=== PATIENT | female | born 1960 | race Caucasian/White ===

== ENCOUNTER → 2017-06-14 | Outpatient (CLI) | payer OTHER ==
[~2017-06-14] MED LIST: ACYCLOVIR 800800 MG PO; ALEVE220 MG PO; AMBIEN 5 MG TABL5 M1 PO; BENTYL 20 MG TA20 M1 PO; CENTRUM SILVER1 EAC4 PO; CETIRIZINE HCL5 MG PO; CITRACAL-VIT D1 EAC2 PO; COLACE100 MG PO; CRANBERRY 6,001 EACH PO; GABAPENTIN 100100 MG PO; GAS-X180 MG PO; IMITREX 25 MG T25 MG PO; JARDIANCE25 MG PO; METFORMIN HCL500 MG PO; MISOPROSTOL PO; MUCINEX600 MG PO; PRAVACHOL40 MG PO; PRILOSEC 20 MG20 MG PO; PROAIR HFA8.5 GM INH; PROBIOTIC1 EAC1 PO; SINGULAIR 10 MG10 M1 PO; SYMBICORT160 MCG/4. INH; VENTOLIN HFA 1818 GM INH; VITAMIN B COMP1 EACH PO; VITAMIN D-32000 UNIT PO; VYVANSE60 MG PO; XANAX1 MG PO; ZANAFLEX4 MG PO; ZOLOFT50 MG PO
== END ==
LOC: RAD 08:23
DX: R06.00 Dyspnea, unspecified (principal); R05 Cough

== ENCOUNTER → 2017-10-02 | Outpatient (CLI) | payer OTHER | LOC: CAT 09:52 → RAD 09:52 | DX: Z12.31 Encounter for screening mammogram for malignant neoplasm of breast (principal); J32.9 Chronic sinusitis, unspecified ==

== ENCOUNTER → 2018-11-25 | Outpatient (CLI) | payer OTHER | LOC: RAD 07:59 → BC 07:59 → RAD 16:49 | DX: Z12.31 Encounter for screening mammogram for malignant neoplasm of breast (principal); R05 Cough; K21.9 Gastro-esophageal reflux disease without esophagitis; R49.0 Dysphonia; L12.9 Pemphigoid, unspecified; R09.89 Other specified symptoms and signs involving the circulatory and respiratory systems ==

== ENCOUNTER → 2018-12-09 | Outpatient (CLI) | payer OTHER | LOC: SPEECH 13:14 → RAD 13:14 | DX: R13.12 Dysphagia, oropharyngeal phase (principal); R93.89 Abnormal findings on diagnostic imaging of other specified body structures; Z98.890 Other specified postprocedural states ==

== ENCOUNTER → 2020-03-18 | Outpatient (CLI) | payer OTHER ==
[~2020-03-18] VITALS: Ht 167.6 cm; Wt 78.5 kg
[~2020-03-18] MED LIST changes: +ADDERALL 20 MG20 MG PO; +AMITRIPTYLINE H25 M2 PO; +CLOBETASOL PROP60 G3 TOP; +CYANOCOBAL1000 MCG/1 IM; +DAPSONE100 MG PO; +FLONASE 0.05%50 MCG NASAL; +HYDROXYZINE PAM25 M1 PO; +PROTONIX 20 MG20 MG PO; +SYSTANE 0.3-0.415 ML OPHTHALMIC; +YUVAFEM10 MCG VAG; +ZOLOFT100 MG PO; -ZOLOFT50 MG PO
--- NOTE | ~2020-03-18 | P ---
[facility] [place] [address] PROCEDURE REPORT Name: BELL POLLOCK Room #: REG [facility]#: [id number] Admission: 03/18/20 Attend Phys: Sabino Marion MD Discharge: Date of : 58 Report #: [id number] THIS REPORT FOR: cc: Alisia Sesay MD,Alisia Marion,Sabino Samaniego MD ~ CC: Alisia Marion OUTPATIENT COLONOSCOPY REPORT BRIEF HISTORY: The patient is a 59-year-old woman with family history of colon cancer, father about age 60. PREOPERATIVE DIAGNOSIS: Family history of colon cancer. POSTOPERATIVE DIAGNOSES: 1. Harb-ns-jkpeyffa sigmoid diverticulosis coli. 2. Small internal hemorrhoids. MEDICATIONS: Deep sedation with propofol per anesthesia. SPECIMEN: None. ESTIMATED BLOOD LOSS: None. PROCEDURE: Colonoscopy to cecum and terminal ileum. FINDINGS: Prior to propofol sedation, procedure of colonoscopy discussed with the patient as well as potential risks and its complications. She indicates she understands and desires to proceed. DESCRIPTION OF PROCEDURE: With the patient in left lateral decubitus position, digital examination was completed, which revealed no abnormalities. Subsequently, the Olympus video colonoscope was introduced into the rectum, advanced under direct vision to the cecum. Done with minimal difficulty. Cecum was identified by the ileocecal valve and the appendiceal orifice. I was able to visualize the distal segment of terminal ileum, which was inspected and noted to be unremarkable. At that point, the scope was slowly withdrawn and careful circumferential views obtained. Upon slow withdrawal of the scope, the prep was good. The mucosa was within normal limits, normal vascular pattern, normal light reflex. As we withdrew the scope, no neoplastic lesions were seen. She had normal colonic mucosa throughout. In the sigmoid colon, there was solf-fi-rxvlfuga sigmoid diverticular disease with small diverticula. Scope was withdrawn in the rectum, no abnormalities were seen. Upon retroflexion, very small hemorrhoids were seen. Scope was withdrawn. The patient tolerated the [facility] [place] [address] PROCEDURE REPORT Name: EBLL POLLOCK Room #: REG [facility]#: [id number] Admission: 03/18/20 Attend Phys: Sabino Marion MD Discharge: Date of : 58 Report #: [id number] procedure well. CONDITION OF THE PATIENT UPON DISCHARGE: Following procedure, the patient drowsy, aroused, conversant and will be discharged home when fully ambulatory. INSTRUCTIONS TO THE PATIENT AND FAMILY AT THE TIME OF DISCHARGE: No neoplastic lesions were seen. Her father was about age 60 at the diagnosis of his colon cancer. Suggest return in 5 years for followup colonoscopy. By: [id number] Sabino Marion MD /nt
== END | disposition home or self-care (01) ==
LOC: GI 08:03
PROVIDERS: ATTEND Specialist
DX: Z12.11 Encounter for screening for malignant neoplasm of colon (principal); K57.30 Diverticulosis of large intestine without perforation or abscess without bleeding; K64.8 Other hemorrhoids; F90.9 Attention-deficit hyperactivity disorder, unspecified type; F32.9 Major depressive disorder, single episode, unspecified; G43.909 Migraine, unspecified, not intractable, without status migrainosus; K21.9 Gastro-esophageal reflux disease without esophagitis; E78.5 Hyperlipidemia, unspecified; G47.30 Sleep apnea, unspecified; Z90.710 Acquired absence of both cervix and uterus; Z86.73 Personal history of transient ischemic attack (TIA), and cerebral infarction without residual deficits; Z98.51 Tubal ligation status; Z79.899 Other long term (current) drug therapy; Z98.890 Other specified postprocedural states
CPT/HCPCS: 62110; 62900

== ENCOUNTER → 2020-09-13 | Outpatient (CLI) | payer OTHER ==
[2020-09-13 14:20] LABS: ABSOLUTE NEUTROPHILS 3.6 thou/uL (1.4-8.2); BASOPHILS 0.5 % (0.0-2.0); EOSINOPHILS 1.6 % (0.0-3.0); HEMATOCRIT 34.7 % (37.0-47.0); HEMOGLOBIN 11.3 gm/dL (12.0-15.0); LYMPHOCYTES 23.4 % (24.0-44.0); MCH 34.5 pg (26.0-34.0); MCHC 32.6 g/dL (28.0-37.0); MCV 105.7 fL (80.0-100.0); MONOCYTES 7.1 % (1.0-8.0); PLATELET COUNT 205 thou/uL (150-400); POLYS 67.4 % (36.0-66.0); RBC 3.29 mil/uL (4.20-5.00); RDW 13.9 % (10.5-14.5); WBC 5.3 thou/uL (4.0-11.0)
[2020-09-13 15:30] LABS: FOLIC ACID 20.8 ng/mL (8.6-58.9)
== END ==
LOC: LAB 13:33 → RAD 13:33
PROVIDERS: ATTEND Internal Medicine
DX: R06.02 Shortness of breath (principal)

== ENCOUNTER → 2021-08-23 | Outpatient (CLI) | payer OTHER | LOC: BC 15:16 | PROVIDERS: ATTEND Internal Medicine | DX: Z12.31 Encounter for screening mammogram for malignant neoplasm of breast (principal); N64.89 Other specified disorders of breast ==